=== PATIENT | female | born 1965 | race Two or more races ===

== ENCOUNTER 2023-10-12 16:16 | Emergency (ER) | payer OTHER ==
[~2023-10-12] VITALS: Ht 175.3 cm; Wt 63.5 kg
[2023-10-12 19:11] VITALS: BP 191/98; PULSE 90; RESP 20; TEMP 98.2; O2SAT 94
[2023-10-12] MEDS: KETOROLAC TROMETH 30 MG/ML 1ML VIAL IV ONE (19:30)
[2023-10-12] MEDS ORDERED: HYDR-4902 PO (21:07)
== END 2023-10-12 21:20 | disposition home or self-care (01) ==
LOC: ER 16:16 → EDBD 16:16 → ER 21:20
DX: S20.211A Contusion of right front wall of thorax, initial encounter (principal); I10 Essential (primary) hypertension; W18.09XA Striking against other object with subsequent fall, initial encounter; Y93.89 Activity, other specified; Y92.89 Other specified places as the place of occurrence of the external cause; Y99.8 Other external cause status
CPT/HCPCS: 71045; 71250; 96374; 99285; J1885